=== PATIENT | female | born 1945 | race Caucasian/White ===

== ENCOUNTER 2019-03-24 15:41 | Observation (INO) | payer MEDICARE ==
[~2019-03-24] VITALS: Ht 157.5 cm; Wt 62.9 kg
--- OUTSIDE RECORDS SUMMARY | ~2019-03-24 | XMS | Clinical Summary ---
Demographics + + + | Address | [address] | | | [place] [address] | + + + | Home Phone | | + + + | Preferred Language | Unknown | + + + | Marital Status | | + + + | Scientologist Affiliation | 1013 | + + + | Race | Unknown | + + + | Ethnic Group | Unknown | + + + Author + + + | Author | [facility] | | | and [facility] | + + + | Organization | [facility] | | | and [facility] | + + + | Address | Unknown | + + + | Phone | Unavailable | + + + Support + + +---------+ + | Name | Relationship | Address | Phone | + + +---------+ + | BRIJESH RASHEED | ECON | Unknown | | + + +---------+ + Care Team Providers + +------+ + | Care Automobile Designer Name | Role | Phone | + +------+ + | Asif Dickinson MD | PP | | + +------+ + Allergies + + + + + + | Active Allergy | Reactions | Severity | Noted | Comments | | | | | Date | | + + + + + + | Meperidine | Nausea And Vomiting | Low | 05 | | | | | | 17 | | + + + + + + | Penicillins | Hives, Itching, Rash | Low | 04/28/20 | | | | | | 17 | | + + + + + + | Sulfa Antibiotics | Hives | High | 04/21/20 | | | | | | 17 | | + + + + + + Medications + + + +---------+------+------+-------+ | Medication | Sig | Dispensed | Refills | Star | End | Statu | | | | | | t | Date | s | | | | | | Date | | | + + + +---------+------+------+-------+ | atenolol | Take 50 mg by mouth | | 0 | 03 | | Activ | | (TENORMIN) 50 mg | Daily. | | | 02/14 | | e | | tablet | | | | 17 | | | + + + +---------+------+------+-------+ | Flaxseed, Linseed, | Take 1 capsule by | | 0 | | | Activ | | (FLAXSEED OIL) 1000 | mouth Daily. | | | | | e | | MG CAPS | | | | | | | + + + +---------+------+------+-------+ | omeprazole | Take 1 capsule by | | 0 | 03/1 | | Activ | | (PRILOSEC) 20 mg | mouth Daily. | | | 3/20 | | e | | capsule | | | | 17 | | | + + + +---------+------+------+-------+ | pravastatin | Take 1 tablet by | | 0 | 03/1 | | Activ | | (PRAVACHOL) 20 mg | mouth Daily. | | | 3/20 | | e | | tablet | | | | 17 | | | + + + +---------+------+------+-------+ | sertraline | Take 150 mg by mouth | | 0 | 03/0 | | Activ | | (ZOLOFT) 100 mg | Daily. | | | 20 | | e | | tablet | | | | 18 | | | + + + +---------+------+------+-------+ | dilTIAZem (CARTIA | Take 300 mg by mouth | | 0 | | | Activ | | XT) 300 mg 24 hr | Daily. | | | | | e | | capsule | | | | | | | + + + +---------+------+------+-------+ | Calcium | Take 1 tablet by | | 0 | | | Activ | | Carb-Cholecalciferol | mouth Daily. | | | | | e | | (CALCIUM 600 + D | | | | | | | | PO) | | | | | | | + + + +---------+------+------+-------+ | levothyroxine | Take 137 mcg by | | 0 | 03/2 | | Activ | | (SYNTHROID) 137 MCG | mouth Daily. | | | /20 | | e | | tablet | | | | 18 | | | + + + +---------+------+------+-------+ Active Problems Not on file Family History + + +---------+ + | Medical History | Relation | Name | Comments | + + +---------+ + | Asthma | Father | | | + + +---------+ + | COPD | Father | | | + + +---------+ + | Hypertension | Father | | | + + +---------+ + | No known problems | Maternal | Niaxine | | | | Aunt | | | + + +---------+ + | No known problems | Maternal | Radha | | | | Aunt | | | + + +---------+ + | Heart attack | Maternal | | | | | Grandfath | | | | | er | | | + + +---------+ + | Stroke | Maternal | | | | | Grandmoth | | | | | er | | | + + +---------+ + | Heart failure | Maternal | | | | | Uncle | | | + + +---------+ + | Other (see comment) | Maternal | | Sepsis | | | Uncle | | | + + +---------+ + | Heart disease | Maternal | | | | | Uncle | | | + + +---------+ + | Heart disease | Maternal | | | | | Uncle | | | + + +---------+ + | Liver disease | Maternal | | | | | Uncle | | | + + +---------+ + | Other cancer | Mother | | Intestinal | + + +---------+ + | Other (see comment) | Paternal | | Peritonitis | | | Grandfath | | | | | er | | | + + +---------+ + | No known problems | Paternal | | | | | Grandmoth | | | | | er | | | + + +---------+ + | Suicide | Paternal | | | | | Uncle | | | + + +---------+ + | Suicide | Sister | | | + + +---------+ + | No known problems | Son | | | + + +---------+ + + +---------+ + + | Relation | Name | Status | Comments | + +---------+ + + | Father | | | | | | | (Age | | | | | 92) | | + +---------+ + + | Maternal Aunt | Niaxine | Alive | | + +---------+ + + | Maternal Aunt | Radha | Alive | | + +---------+ + + | Maternal Grandfather | | | | | | | (Age | | | | | 79) | | + +---------+ + + | Maternal Grandmother | | | | | | | (Age | | | | | 66) | | + +---------+ + + | Maternal Uncle | | | | + +---------+ + + | Maternal Uncle | | | | + +---------+ + + | Maternal Uncle | | | | + +---------+ + + | Maternal Uncle | | | | + +---------+ + + | Maternal Uncle | | | | + +---------+ + + | Mother | | | | | | | (Age | | | | | 88) | | + +---------+ + + | Paternal Grandfather | | | | | | | (Age | | | | | 64) | | + +---------+ + + | Paternal Grandmother | | | | | | | (Age | | | | | 93) | | + +---------+ + + | Paternal Uncle | | | | | | | (Age | | | | | 76) | | + +---------+ + + | Sister | | | | | | | (Age | | | | | 42) | | + +---------+ + + | Son | | Alive | | + +---------+ + + Social History + +-------+ +--------+------+ [...] + +---------+ + | Alcohol Use | Drinks/We | oz/Week | Comments | | | ek | | | + + +---------+ + | Yes | 7 | 4.2 | 1 glass of Red wine in the eveing | | | Glasses | | | | | of wine | | | + + +---------+ + + + + | Sex Assigned at | Date Recorded | | | | + + + | Not on file | | + + + + + + + | Job Start Date | Occupation | Industry | + + + + | Not on file | Not on file | Not on file | + + + + + + + + | Travel History | Travel Start | Travel End | + + + + + + | No recent travel history available. | + + Last Filed Vital Signs + + + + | Vital Sign | Reading | Time Taken | + + + + | Blood Pressure | 126/70 | 02/17/2018 1134 PDT | + + + + | Pulse | 60 | 02/17/20184 PDT | + + + + | Temperature | - | - | + + + + | Respiratory Rate | - | - | + + + + | Oxygen Saturation | - | - | + + + + | Inhaled Oxygen | - | - | | Concentration | | | + + + + | Weight | 61.2 kg (134 lb 14.7 | 02/17/20181133 PDT | | | oz) | | + + + + | Height | 157.5 cm (5' 2") | 02/17/20181133 PDT | + + + + | Body Mass Index | 24.68 | 02/17/20181133 PDT | + + + + Plan of Treatment + + + + + | Health Maintenance | Due Date | Last Done | Comments | + + + + + | Hepatitis C | | | | | Screening | 6 | | | + + + + + | Vaccine: | | | | | Dtap/Tdap/Td (1 - | 5 | | | | Tdap) | | | | + + + + + | Breast Cancer | | | | | Screening (Ages | 6 | | | | 50-74) | | | | + + + + + | Colorectal Cancer | | | | | Screening | 6 | | | | (Colonoscopy) | | | | + + + + + | Vaccine: Zoster (1 | | | | | of 2) | 6 | | | + + + + + | Vaccine: | | | | | Pneumococcal 65+ | 1 | | | | Low/Medium Risk (1 | | | | | of 2 - PCV13) | | | | + + + + + | Adult Annual | | | | | Wellness Visit | 5 | | | + + + + + | Vaccine: Influenza | | | | | (Season Ended) | 9 | | | + + + + + Results Not on filefrom Last 3 Months Insurance + +--------+ +--------+-------+---------+--------+ | Payer | Benefi | Subscriber | Effect | Phone | Address | Type | | | t Plan | ID | margarita | | | | | | / | | Dates | | | | | | Group | | | | | | + +--------+ +--------+-------+---------+--------+ | [employer] | [employer] | [id number] | | | | Indemn | | | INS | 9 | 017-Pr | | | ity | | | MVA | | esent | | | | + +--------+ +--------+-------+---------+--------+ + +--------+ +--------+ + + | Guarantor Name | Accoun | Relation to | Date | Phone | Billing Address | | | t Type | Patient | of | | | | | | | | | | + +--------+ +--------+ + + | Nely Rasheed | Person | Self [birth year] | | [address] | | | al/Fam | | 1945 | [phone] | [place] [address] | | | adrienne | | | 8 (Home) | | + +--------+ +--------+ + + | Nely Rasheed | Third | Self | [birth year] | | [address] | | | Green Party | | 1945 | [phone] | [place] [address] | | | Liabil | | | 8 (Home) | | | | ity | | | | | + +--------+ +--------+ + + Advance Directives Patient has advance care planning documents on file. For more information, please contact:[facility] [place] [address]
--- OUTSIDE RECORDS SUMMARY | ~2019-03-24 | XMS | Clinical Summary ---
Demographics + + + | Address | [address] | | | [place] [address] | + + + | Home Phone | | + + + | Preferred Language | Unknown | + + + | Marital Status | | + + + | Bahai Affiliation | 1013 | + + + | Race | Unknown | + + + | Ethnic Group | Unknown | + + + Author + + + | Author | [facility] | | | and [facility] | + + + | Organization | [facility] | | | and [facility] | [...] Team Providers + +------+ + | Care Test Rider Name | Role | Phone | + [...] +--------+-------+---------+--------+ | [employer] | [employer] | [id number] | | | | Indemn | | [...] | 1945 | [phone] | [place] [address] | | | adrienne | | | 8 (Home) | | + +--------+ +--------+ + + | Nely Rasheed | Third | Self | [birth year] | | [address] | | | Libertarian | | 1945 | [phone] | [place] [address] | | | Liabil | | | 8 (Home) | | | | ity | | | | | + +--------+ +--------+ + + Advance Directives Patient has advance care planning documents on file. For more information, please contact:[facility] [place] [address]
--- OUTSIDE RECORDS SUMMARY | ~2019-03-24 | XMS | Clinical Summary ---
Demographics + + + | Address | [address] | | | [place] [address] | + + + | Home Phone | | + + + | Preferred Language | Unknown | + + + | Marital Status | | + + + | Advent Affiliation | Unknown | + + + | Race | Unknown | + + + | Ethnic Group | Unknown | + + + Author + + + | Author | [facility] | + + + | Organization | [facility] | + + + | Address | Unknown | + + + | Phone | Unavailable | + + + Support + + +---------+ + | Name | Relationship | Address | Phone | + + +---------+ + | Eusebio Rasheed | ECON | Unknown | | + + +---------+ + Care Team Providers + +------+ + | Care Job Site Supervisor Name | Role | Phone | + +------+ + | Asif Dickinson MD | PP | | + +------+ + Allergies + + + + + + | Active Allergy | Reactions | Severity | Noted | Comments | | | | | Date | | + + + + + + | Meperidine | Nausea and Vomiting | Low | 04/21/20 | | | | | | 17 | | + + + + + + | Penicillins | Hives | High | 04/28/20 | | | | | | 17 | | + + + + + + | Sulfa Antibiotics | Hives | High | 04/21/20 | | | | | | 17 | | + + + + + + Current Medications + + +-------+---------+------+------+-------+ | Prescription | Sig. | Disp. | Refills | Star | End | Statu | | | | | | t | Date | s | | | | | | Date | | | + + +-------+---------+------+------+-------+ | atenolol | | | | 03/1 | | Activ | | (TENORMIN) 50 MG | | | | 3/20 | | e | | tablet | | | | 17 | | | + + +-------+---------+------+------+-------+ | omeprazole | | | | 03/1 | | Activ | | (PRILOSEC) 20 MG | | | | 3/20 | | e | | capsule | | | | 17 | | | + + +-------+---------+------+------+-------+ | diltiazem | | | | 03/1 | | Activ | | (CARDIZEM CD) 300 MG | | | | 3/20 | | e | | 24 hr capsule | | | | 17 | | | + + +-------+---------+------+------+-------+ | levothyroxine | | | | 03/1 | | Activ | | (SYNTHROID) 125 MCG | | | | 3/20 | | e | | tablet | | | | 17 | | | + + +-------+---------+------+------+-------+ | pravastatin | | | | 03/1 | | Activ | | (PRAVACHOL) 20 MG | | | | 3/20 | | e | | tablet | | | | 17 | | | + + +-------+---------+------+------+-------+ | triazolam | | | | 03/1 | | Activ | | (HALCION) 0.25 MG | | | | 3/20 | | e | | tablet | | | | 17 | | | + + +-------+---------+------+------+-------+ | sertraline | | | | 05/1 | | Activ | | (ZOLOFT) 100 MG | | | | 1/20 | | e | | tablet | | | | 17 | | | + + +-------+---------+------+------+-------+ | Flaxseed, Linseed, | Take by mouth. | | | | | Activ | | (FLAX SEED OIL PO) | | | | | | e | + + +-------+---------+------+------+-------+ | Calcium | Take by mouth. | | | | | Activ | | Carb-Cholecalciferol | | | | | | e | | (CALCIUM 500 +D PO) | | | | | | | + + +-------+---------+------+------+-------+ Active Problems + + + | Problem | Noted Date | + + + | Left carpal tunnel syndrome | 04/21/2017 | + + + Social History + +-------+ [...] + + +---------+ + | Yes | 0 | 1.8 - | week | | | Standard | 2.4 | | | | drinks or | | | | | | | | | | equivalen | | | | | t 3-4 | | | | | Glasses | | | | | of wine | | | + + +---------+ + + + + | Sex Assigned at | Date Recorded | | | | + + + | Not on file | | + + + Last Filed Vital Signs + + + + | Vital Sign | Reading | Time Taken | + + + + | Blood Pressure | 136/68 | 08/18/2017 11:37 AM PDT | + + + + | Pulse | 58 | 08/18/2017 11:37 AM PDT | + + + + | Temperature | 36.2 C (97.2 F) | 05/04/2017 3:17 PM PDT | + + + + | Respiratory Rate | 16 | 05/04/2017 3:20 PM PDT | + + + + | Oxygen Saturation | 97% | 05/04/2017 3:20 PM PDT | + + + + | Inhaled Oxygen | - | - | | Concentration | | | + + + + | Weight | 62.1 kg (137 lb) | 08/18/2017 11:37 AM PDT | + + + + | Height | 170.2 cm (5' 7") | 08/18/2017 11:37 AM PDT | + + + + | Body Mass Index | 21.46 | 08/18/2017 11:37 AM PDT | + + + + Plan [...] Screening | 6 | | | | (Mammogram) | | | | + + + + + | Colon Cancer | | | | | Screening | 6 | | | | (Colonoscopy) | | | | + + + + + | Vaccine: Zoster (1 | | | | | of 2) | 6 | | | + + + + + | DEXA SCAN SCREENING | | | | | | 1 | | | + + + + [...] filefrom Last 3 Months Insurance + +--------+ +------+-------+ + | Payer | Benefi | Subscriber | Type | Phone | Address | | | t Plan | ID | | | | | | / | | | | | | | Group | | | | | + +--------+ +------+-------+ + | MEDICARE | MEDICA | [id number] | | | [address] | | | RE | | | | [place] [address] | | | IP-OP | | | | | + +--------+ +------+-------+ + | [employer] | MUTUAL | [id number] | | | | | | [place] | | | | | | | [place] | | | | | + +--------+ +------+-------+ + + +--------+ +--------+ + + | Guarantor Name | Accoun | Relation to | Date | Phone | Billing Address | | | t Type | Patient | of | | | | | | | | | | + +--------+ +--------+ + + | BETH RASHEED | Person | Self | [birth year] | Home: | [address] | | | al/Fam | | 1945 | [phone] | [place] [address] | | | ad[place]ne | | | [phone] | | + +--------+ +--------+ + +
--- OUTSIDE RECORDS SUMMARY | ~2019-03-24 | XMS | Clinical Summary ---
Demographics + + + | Address | [address] | | | [place] [address] | + + + | Home Phone | | + + + | Preferred Language | Unknown | + + + | Marital Status | | + + + | Mormon Affiliation | Unknown | + + + | Race | Unknown | + + + | Ethnic Group | Unknown | + + + Author + + + | Author | [facility] | + + + | Organization | [facility] | + + + | Address | Unknown | + + + | Phone | Unavailable | + + + Support + + +---------+ + | Name | Relationship | Address | Phone | + + +---------+ + | Eusebio Rasheed | ECON | Unknown | | + + +---------+ + Care Team Providers + +------+ + | Care Anesthesiologist And Critical Care Name | Role | Phone | + [...] +------+-------+ + | MEDICARE | MEDICA | [id number] | | | [address] | | | RE | | | | [place] [address] | | | IP-OP | | | | | + +--------+ +------+-------+ + | [employer] | MUTUAL | [id number] | | | | | | [place] | | | | | | | [place] | | | | | + +--------+ [...] | 1945 | [phone] | [place] [address] | | | ad[place]ne | | | [phone] | | + +--------+ +--------+ + +
--- OUTSIDE RECORDS SUMMARY | ~2019-03-24 | XMS | Clinical Summary ---
Demographics + + + | Address | [address] | | | [place] [address] | + + + | Home Phone | | + + + | Preferred Language | Unknown | + + + | Marital Status | | + + + | Latter-Day Affiliation | 1013 | + + + | Race | Unknown | + + + | Ethnic Group | Unknown | + + + Author + + + | Author | [facility] | | | and [facility] | + + + | Organization | [facility] | | | and [...] Team Providers + +------+ + | Care Security Escort Name | Role | Phone | + [...] +--------+-------+---------+--------+ | [employer] | [employer] | [id number] | | | | Indemn | | [...] | 1945 | [phone] | [place] [address] | | | adrienne | | | 8 (Home) | | + +--------+ +--------+ + + | Nely Rasheed | Third | Self | [birth year] | | [address] | | | Republican | | 1945 | [phone] | [place] [address] | | | Liabil | | | 8 (Home) | | | | ity | | | | | + +--------+ +--------+ + + Advance Directives Patient has advance care planning documents on file. For more information, please contact:[facility] [place] [address]
--- OUTSIDE RECORDS SUMMARY | ~2019-03-24 | XMS | Clinical Summary ---
Demographics + + + | Address | [address] | | | [place] [address] | + + + | Home Phone | | + + + | Preferred Language | Unknown | + + + | Marital Status | | + + + | Catholic Affiliation | Unknown | + + + | Race | Unknown | + + + | Ethnic Group | Unknown | + + + Author + + + | Author | [facility] | + + + | Organization | [facility] | + + + | Address | Unknown | + + + | Phone | Unavailable | + + + Support + + +---------+ + | Name | Relationship | Address | Phone | + + +---------+ + | Eusebio Rasheed | ECON | Unknown | | + + +---------+ + Care Team Providers + +------+ + | Care Outdoor Power Equipment Mechanic Name | Role | Phone | + [...] +------+-------+ + | MEDICARE | MEDICA | [id number] | | | [address] | | | RE | | | | [place] [address] | | | IP-OP | | | | | + +--------+ +------+-------+ + | [employer] | MUTUAL | [id number] | | | | | | [place] | | | | | | | [place] | | | | | + +--------+ [...] | 1945 | [phone] | [place] [address] | | | adrienne | | | [phone] | | + +--------+ +--------+ + +
[~2019-03-24 15:41] MED LIST: ATENOLOL50 MG PO; CITRACAL-VIT D1 EACH PO; DILTIAZEM ER300 MG PO; LEVOXYL125 MCG PO; OMEPRAZOLE20 MG PO; PRAVASTATIN SOD20 MG PO; SERTRALINE HCL100 MG PO; TRIAZOLAM0.25 MG PO; VITAMIN D2000 UNI1 PO
--- NOTE | 2019-03-24 19:35 | NUR ---
PT ARRIVED TO FLOOR VIA STRETCHER. PT ABLE TO SCOOT HERSELF OVER ONTO BED. TOLERATED WELL. PT ADMISSION COMPLETE. PT REPORTS 4/10 ABD PAIN, REQUESTS PRN. MORPHINE 2MG PRN ADMINISTERED. PT REQUESTS SLOW PUSH, STATES MEDICATION MAKES HER SLEEPY. PT DENIES FURTHER NEEDS. CALL LIGHT IN REACH. PT ORIENTED TO ROOM. CALL LIGHT IN REACH.
--- NOTE | 2019-03-24 21:18 | NUR ---
AWAKES EASILY, COOP WITH ASSESSMENT, HEA, NO RESP DISTRESS. NO FURTHER C/O PAIN.
--- NOTE | 2019-03-24 23:39 | NUR ---
RESTING, NO C/O PAIN, WARM BLANKET GIVEN. CALL LIGHT AT BEDSIDE, NPO
--- NOTE | 2019-03-25 01:47 | NUR ---
AWAKENS EASILY, NO C/O DISTRESS. CALL LIGHT AT BEDSIDE IVF INFUSING W/O PROBLEMS. NPO
--- NOTE | 2019-03-25 03:24 | NUR ---
up to br, voided, passing gas, back to bed. IVF infusing well, c/o abd cramping, will medicate. call light at bedside
--- NOTE | 2019-03-25 03:45 | NUR ---
MEDICATED W MORPHINE IV 1MG C/O 03/07 ABD CRAMPING,
--- NOTE | 2019-03-25 07:38 | NUR ---
BEDSIDE REPORT.. PT RESTING IN BED ON LEFT SIDE, RESP RATE 16 BPM EVEN, NO DISTRESS NOTED. PT APPEARS TO BE SLEEPING AT THIS TIME.
[2019-03-25] MEDS ORDERED: LEVOTHYROXINE137 MCG PO (07:44)
--- NOTE | 2019-03-25 10:15 | NUR ---
PT ALERT AND ORIENTED REPORTS PAIN 8/10, 3MG IV MORPHINE ADMINISTERED AT THIS TIME. SPOUSE AT BEDSIDE AT THIS TIME.
--- NOTE | 2019-03-25 11:15 | NUR ---
PT SITTING UP IN BED WATCHING TV, NO ISSUES AT THIS TIME. PAIN MANAGED AT TOLERABLE LEVEL AT THIS TIME.
--- NOTE | 2019-03-25 11:25 | NUR ---
Medications reconciled with pharmacy records and patient interview
--- NOTE | 2019-03-25 11:54 | NUR ---
PT RESTING IN BED SMILING AND LAUGHING WITH HER GRANDSON AT BEDSIDE. NO REQUESTS OR COMPLAINTS AT THIS TIME
--- NOTE | 2019-03-25 14:00 | NUR ---
CALLED TO NOTIFY OF PT HAVING MODERATE AMOUNT OF VI RED BLOOD OUT HER RECTUM WHILE PASSING FLATUS AMBUALTING FROM BATHROOM. VERBALIZED TO HAVE PT AT BED REST AND MONITOR FOR SYMPTOMS AND REPORT FURHTER BLOOD LOSS.
--- NOTE | 2019-03-25 15:44 | NUR ---
CALLED TO DISCUSS WHAT PT DIET SHOULD BE AT THIS POINT. ORDERED FOR CLEAR LIQUID DIET
--- NOTE | 2019-03-25 16:38 | NUR ---
HELPED PATIENT WALK INTO BATHROOM. HELPED HER DO A BED BATH. SHE WASHED HER FACE. PATIENT IS NOW RESTING.
--- NOTE | 2019-03-25 17:10 | NUR ---
PT REPORTS PAIN 5/10 AT THIS TIME. 3MG I.V. MORPHINE ADMINISTERED AT THIS TIME.
--- NOTE | 2019-03-25 19:50 | NUR ---
up in chair, watching tv, no c/o pain. coop with assessment
--- NOTE | 2019-03-25 20:58 | NUR ---
UP TO BR, VOIDED, BACK TO BED, SEMI INDEPENDENT. NO C/O ABD PAIN, NO N/V. TOLERATING CLEAR LIQUIDS WELL, CALL LLIGHT AT BEDSIDE
--- NOTE | 2019-03-25 23:50 | NUR ---
UP TO BR, VOIDED, BACK TO BED, TOLERATD WELL. C/O ABD CRAMPING, MEDICATED WTIH MORPHINE 2MG IV /10 PAIN. CALL LIGHT AT BEDSIDE. TOLERATING CLEAR LIQUIDS WELL
--- NOTE | 2019-03-26 00:52 | NUR ---
RESTING, AWAKENS EASILY, NO FURTHER C/O PAIN. CALL LIGHT AT BEDSIDE
--- NOTE | 2019-03-26 05:51 | NUR ---
CERRENTLY RESTING, EYES CLOSED, NO RESP DISTRESS , ON ROOM AIR. NO RECTAL BLEEDING THIS SHIFT. UP W 1PA. IVF INFUSING W/O PROBLEMS. TOLERATING CLEAR FLUIDS WELL. HAS BEEN MEDICATED X1 WITH MORPHINBE IV, W VERY GOOD PAIN RELIEF. CALL LIGHT AT BEDSIDE
--- NOTE | 2019-03-26 07:32 | NUR ---
RECIEVED BEDSIDE REPORT FROM JORY MUJICA. PT SLEEPING. NO REPORTS OF RECTAL BLEEDING OVERNIGHT. NO NAUSEA OR VOIMTING REPORTED. IVF RUNNING.
--- NOTE | 2019-03-26 08:05 | NUR ---
AM CARE DONE. PT REQUESTED SHOWER. WILL TALK TO NURSE.
--- NOTE | 2019-03-26 08:42 | NUR ---
PT SHOWERED. NEW GOWN AND SOCKS GIVEN. LINEN CHANGED. PT SITTING IN CHAIR.
--- NOTE | 2019-03-26 09:31 | NUR ---
PT UP TO SHOWER WITH MD JENNINGS. UP TO CHAIR FOR BREAKFAST. TOLERATED A FEW BITES OF CREAM OF RICE CEREAL, C/O PAIN IN BELLY. PT WANTED TO GO BACK TO BED.
--- NOTE | 2019-03-26 09:39 | NUR ---
PT IV RUNNING WELL. PAIN IS BETTER CONTROLLED WITH IV MORPHINE.
--- NOTE | 2019-03-26 10:30 | NUR ---
SPOKE WITH PATIENT AND IN ROOM. PATIENT PLANS TO RETURN HOME AT DISCHARGE. PATIENT HAS NO KNOWN BARRIERS TO THIS PLAN. QUESTIONS ANSWERED. DISCUSSED KNOWING DIAGNOSIS, MEDS AND SIDE EFFECTS, TEST RESULTS AND FOLLOW UP PLANS BEFORE DISCHARGE. PATIENT HAS EDUCATION PACK IN ROOM, THIS WAS GIVEN AND SHOWN. QUESTIONS ANSWERED. PT FEELS CONFIDENT SO FAR IN UNDERSTANDING AND THEY PLAN FOR TO BE PRESENT FOR DISCHARGE, ALSO. WILL FOLLOW IN CM NEEDED.
--- NOTE | 2019-03-26 14:26 | NUR ---
PT RESTING COMFORTABLY IN BED. STATES SHE CAN FEEL "THINGS RUMBLING" IN HER BELLY AND FEELS THE NEED TO PUSH BUT KNOWS THERE IS NOTHING THERE. PT TOLERATED MASHED POTATEOS AND APPLESAUCE FOR LUNCH.
--- NOTE | 2019-03-26 17:10 | NUR ---
PT RESTING COMFORTABLY IN BED. SHE HAD COMPANY THIS AFTERNOON. SHE APPEARS TO BE IN GOOD SPIRTS. SHE STATES SHE CAN FEEL "GURGLING MOVING THROUGH", BUT PAIN IS WELL CONTROLLED AT THIS TIME.
--- NOTE | 2019-03-26 18:00 | NUR ---
PT REPORTS NO BLOODY STOOLS THIS SHIFT. ADVANCED TO LOW FIBER DIET AND TOLERATING WELL. SALINE LOCKED EXCEPT FOR ABX. PT PAIN CONTROLLED WITH PRN IV MORPHINE X2 THIS SHIFT. PT REPORTS FEELING "GURGGLING" IN ABD. VOIDING WELL.
--- NOTE | 2019-03-26 20:18 | NUR ---
RECEIVED REPORT FROM DAY SHIFT RN. PATIENT IS RESTING IN BED WATCHING TV. PATIENT DENIES ANY NEEDS. CALL LIGHT IN REACH.
--- NOTE | 2019-03-26 22:30 | NUR ---
PATIENT ASSESMENT COMPLETED. PATIENT IS RESTING IN BED WATCHING TV. PATIENTS EVENING MEDICATIONS GIVEN PER ORDER. PATIENT RATES PAIN AT A 4/10 IN HER ABD. PATIENT GIVEN PRN PAIN MEDICATION PER ORDER. PATIENT HAS IV INFUSING PER ORDER. PATIENT DENIES ANY FURTHER NEEDS. AT THIS TIME. CALL LIGHT IN REACH.
--- NOTE | 2019-03-26 23:57 | NUR ---
V/S AND I&O DONE AND RECORDED. ICE WATER REFILLED. NO OTHER NEEDS AT THE TIME.
--- NOTE | 2019-03-27 01:12 | NUR ---
PATIENTS IV PUMP IS BEEPING. NEW BAG OF IV FLUIDS HUNG PER ORDER. PATIENT UP TO USE THE RESTROOM. PATIENT WAS ABLE TO VOID. PATIENT IS BACK IN BED RESTING. PATIENT DENIES ANY PAIN. PATIENT IS ALSO ABLE TO PASS GAS. NO FURTHER NEEDS NOTED. CALL LIGHT IN REACH.
--- NOTE | 2019-03-27 02:54 | NUR ---
PATIENTS PUMP WAS BEEPING. PATIENT DID NOT PLUG IN IV PUMP AFTER TRIP TO THE RESTROOM. PUMP PLUGGED IN. PATIENT RATES PAIN AT A 2/10. PATIENT DENIES THE NEED FOR ANY PAIN MEDICATION AT THIS TIME. NO NEEDS NOTED. CALL LIGHT IN REACH.
--- NOTE | 2019-03-27 04:44 | NUR ---
PATIENT IS RESTING IN BED WITH EYES CLSOED, RR 17. CALL LIGHT IN REACH.
--- NOTE | 2019-03-27 04:55 | NUR ---
PATIENT RESTED WELL THROUGHOUT THE SHIFT. PATIENT IS ON A LOW FIBER DIET, TOLERATING WELL, AND NO COMPLAINTS OF NAUSEA. NO BMS NOTED. PATIENT HAS IV INFUSING PER ORDER. PATIENT IS INDEPENT IN THE ROOM. PATIENT RECEIVED X1 PRN PAIN MEDICATION PER ORDER. PATIENT IS AAOX3 AND USES CALL LIGHT APPROPRIATELY.
--- NOTE | 2019-03-27 06:10 | NUR ---
PATIENTS VITALS TAKEN AND RECORDED. PATIENTS INTAKE AND OUTPUT REOCRDED. PATIENT DENIES ANY PAIN OR NAUSEA. NO NEEDS NOTED. CALL LIGHT IN REACH.
--- NOTE | 2019-03-27 07:05 | NUR ---
BEDSIDE HANDOFF REPORT RECEIVED FROM BRUSH CLEANER RN. PT SLEEPING, LEFT UNDISTURBED.
--- NOTE | 2019-03-27 08:24 | NUR ---
PATIENT UP TO BATHROOM AND THEN TO CHAIR, SBA. PATIENT SITTING IN CHAIR EATING BREAKFAST. CALL LIGHT IN REACH. NO FURTHER NEEDS AT THIS TIME.
--- NOTE | 2019-03-27 08:30 | NUR ---
PT SITTING IN CHAIR. PT DENIES PAIN. PT STATES SHE IS LOOKING FORWARD TO DISCHARGE TODAY. PT ON ROOM AIR, LUNG SOUNDS CLEAR. BOWEL TONES ACTIVE, DENIES NAUSEA, ABD SOFT, MIRALAX GIVEN PER ORDER. PT WIHTOUT EDEMA, CMS INTACT. IV FLUIDS INFUSING AT 100 ML/HR, IV CIPRO GIVEN. PT WITH GOOD APPETITE. DISCUSSED PLAN OF CARE FOR THE DAY. PT DENIES OTHER NEEDS AT THIS TIME.
--- NOTE | 2019-03-27 09:29 | NUR ---
PATIENT IN CHAIR WATCHING TV. FRESH WATER AND WARM BLANKET GIVEN. CALL LIGHT IN REACH. NO FURTHER NEEDS AT THIS TIME. PATIENT WANTS TO WAIT TO SEE IF BEING DISCHARGED BEFORE SHOWERING.
[2019-03-27] MEDS ORDERED: CIPROFLOXACIN500 MG PO (09:35)
[2019-03-27] MEDS ORDERED: FLAGYL500 MG PO (09:36)
[2019-03-27] MEDS ORDERED: MELATONIN5 M2 PO (10:23)
[2019-03-27] MEDS ORDERED: FLAX SEED OIL1000 MG PO (10:24)
== END 2019-03-27 10:45 | disposition home or self-care (01) ==
LOC: ED 15:41 → MS 15:43
PROVIDERS: ADMIT Internal Medicine
DX: K52.9 Noninfective gastroenteritis and colitis, unspecified (principal); E03.9 Hypothyroidism, unspecified; E78.00 Pure hypercholesterolemia, unspecified; R51 Headache; K62.5 Hemorrhage of anus and rectum; Z79.899 Other long term (current) drug therapy; Z88.5 Allergy status to narcotic agent; Z88.0 Allergy status to penicillin; Z88.2 Allergy status to sulfonamides
CPT/HCPCS: 36415; 74177; 80048; 80053; 81001; 83690; 83735; 85025; 87088; 96361; 96366; 96368; 96376; 99284-25; C9113; G0378; J0744; J2270; J2405; J7030; Q9967

== ENCOUNTER 2019-04-24 12:35 | Day surgery (SDC) | payer MEDICARE ==
[~2019-04-24] VITALS: Ht 157.5 cm; Wt 59.9 kg
--- NOTE | ~2019-04-24 | OR ---
[facility] [address], [place] [address] Draft DATE OF OPERATION: 04/24/2019 SURGEON: Viji Muro MD PREOPERATIVE DIAGNOSES: 1. Colon screening. 2. History of diverticular disease with incomplete colonoscopy, Della Martinez, 2007. POSTOPERATIVE DIAGNOSIS: Profound diverticular changes of sigmoid, otherwise normal colon. PROCEDURE PERFORMED: Total colonoscopy to cecum (prolonged, complicated, difficult). ANESTHESIA: Intravenous sedation, fentanyl 200 mcg and Versed 10 mg. INDICATION: A 73-year-old white woman is a patient of Sarah Mcelroy. She underwent colonoscopy greater than 10 years ago in [place], [place], by Dr. Jigar Wiley. Colonoscopy was incomplete due to inability to pass the scope and a barium enema was then performed showing no sign of abnormality other than diverticulosis. She is generally symptom-free, though she does have constipation from hsjp-kg-iowd. She was admitted to the hospital for "colitis" in the past several weeks by Dr. Garcia. It was unclear if this represented colitis proper or diverticulitis. She does have family history of ulcerative colitis in a maternal aunt, but no family history of colon cancer. She is admitted at this time to undergo colonoscopy to better characterize her problem and specifically to assess for colitis, neoplasm, and so on. She understands the risks of bleeding, infection, and perforation and wished to proceed. FINDINGS: The prep was excellent. Complete colonoscopy was taken to the cecum, but was not easy at all. The sigmoid was markedly tortuous with numerous diverticuli. With patient's body position change and a fair amount of luck, the scope was passed beyond the sigmoid and relatively easily passed to the cecum after that. There was no evidence of polyps, only diverticulosis, no sign of colitis either. DESCRIPTION OF PROCEDURE: The patient was brought to the endoscopy suite and placed in lateral decubitus position, given intravenous sedation to the point of slurred speech and nystagmus. Digital rectal PATIENT NAME: BETH RASHEED OPERATIVE REPORT DATE OF : 47 REPORT #: [id number] PHYSICIAN: VIJI MURO MD PCP: SARAH MCELROY REPORT IS CONFIDENTIAL AND NOT TO BE RELEASED WITHOUT AUTHORIZATION [facility] [address], [place] [address] Draft examination was normal. Olympus video colonoscope was passed in the rectum and manipulated into the sigmoid, in into about 20-30 cm. Numerous diverticuli and angulation deformity were noted. Care in patient's irrigation and time allow for passage of the scope a bit further, but at a point, it was considered unlikely to be possible to be completed. At that point, the patient was placed in the supine position and with additional effort, the scope was then passed beyond the sigmoid into the left colon. Beyond that, the scope was passed to the cecum without problem at all really. The ileocecal valve and appendiceal orifice were normal and scope was withdrawn from that point and examination undertaken, showed no sign of abnormality as regard to colitis, polyps, or cancer. The scope was withdrawn and diverticuli and angulation deformity once again noted in the sigmoid and distal left colon. The rectum was normal. Scope was removed and the patient was taken to recovery room in good condition. CONCLUDING DIAGNOSIS: Significant diverticulosis to sigmoid and left colon with angulation deformity. No evidence of polyps or cancer. PLAN: Recommend repeat colonoscopy in 10 years if clinically appropriate or sooner if symptoms should develop. MD NAHEED [place]/LAURENCE /[id number] cc: MILES Castellon Copies: SARAH MCELROY ~ PATIENT NAME: BETH RASHEED [place] OPERATIVE REPORT DATE OF : 47 REPORT #: [id number] PHYSICIAN: VIJI MURO MD PCP: SARAH MCELROY REPORT IS CONFIDENTIAL AND NOT TO BE RELEASED WITHOUT AUTHORIZATION
[~2019-04-24 12:35] MED LIST changes: +CARTIA XT300 MG PO; +CIPROFLOXACIN500 MG PO; +DIFLUCAN150 MG PO; +FLAGYL500 MG PO; +FLAX SEED OIL1000 MG PO; +LEVOTHYROXINE137 MCG PO; +MELATONIN5 M2 PO
--- NOTE | 2019-04-24 14:39 | NUR ---
04/24/19 1439 Melany Olmedo 1417 PT ARRIVED IN PACU SLEEPY WITH NO C/O'S. ABD FIRM. ENCOURAGED TO PASS FLATUS. 1430 PASSING FLATUS. AWAKENS TO VERBAL STIMULI AND FALLS BACK TO SLEEP.
== END 2019-04-24 15:10 | disposition home or self-care (01) ==
LOC: OPS 12:35 → DS 14:00 → OPS 14:00
PROVIDERS: Surgery
PROC: 0DJD8ZZ Inspection of Lower Intestinal Tract, Via Natural or Artificial Opening Endoscopic (ICD-10-PCS; principal; 2019-04-24 13:30)
DX: Z12.11 Encounter for screening for malignant neoplasm of colon (principal); K57.30 Diverticulosis of large intestine without perforation or abscess without bleeding; Q43.9 Congenital malformation of intestine, unspecified; E03.9 Hypothyroidism, unspecified; K21.9 Gastro-esophageal reflux disease without esophagitis; I10 Essential (primary) hypertension; Z83.79 Family history of other diseases of the digestive system; Z88.0 Allergy status to penicillin
CPT/HCPCS: 99153; G0500; J2250; J3010; J7120

== ENCOUNTER 2020-07-03 15:36 | Emergency (ER) | payer MEDICARE ==
[~2020-07-03] VITALS: Ht 157.5 cm; Wt 61.2 kg
--- OUTSIDE RECORDS SUMMARY | ~2020-07-03 | XMS | Encounter Summary ---
Demographics + + + | Address | [address] | | | [place] [address] | + + + | Home Phone | | + + + | Preferred Language | Unknown | + + + | Marital Status | | + + + | Episcopalian Affiliation | 1013 | + + + | Race | Unknown | + + + | Ethnic Group | Unknown | + + + Author + + + | Author | [facility] | | | and [place] | + + + | Organization | [facility] | | | and [place] | + + + | Address | Unknown | + + + | Phone | Unavailable | + + + Support + + +---------+ + | Name | Relationship | Address | Phone | + + +---------+ + | Santiago May | ECON | Unknown | | + + +---------+ + Care Team Providers + +------+ + | Care Tractor Trailer Moving Van Driver Name | Role | Phone | + +------+ + | Asif Dickinson MD | PCP | | + +------+ + Encounter Details +--------+ + + + + | Date | Type | Department | Care Team | Description | +--------+ + + + + | 02/16/ | Abstract | [facility] | Anjel Polk MD | | | 2018 | | PHYSIATRY [address] | | | | | [address] | [place] [address] | | | | | [place] | [phone] | | | | | [address] | | | | | | [phone] | | | +--------+ + + + + Social History + +-------+ +--------+------+ | Tobacco Use | Types | Packs/Day | Years | Date | | | | | Used | | + +-------+ +--------+------+ | Never Smoker | | | | | + +-------+ +--------+------+ + +---+---+---+ | Smokeless Tobacco: | | | | | Never Used | | | | + +---+---+---+ + + +---------+ + | Alcohol Use | Drinks/Week | oz/Week | Comments | + + +---------+ + | Yes | 7 Glasses of wine | 7.0 | 1 glass of Red wine | | | | | in the eveing | + + +---------+ + + + + | Sex Assigned at | Date Recorded | | | | + + + | Not on file | | + + + documented as of this encounter Plan of Treatment Not on filedocumented as of this encounter Visit Diagnoses Not on filedocumented in this encounter"
--- OUTSIDE RECORDS SUMMARY | ~2020-07-03 | XMS | Encounter Summary ---
Demographics + + + | Address | [address] | | | [place] [address] | + + + | Home Phone | | + + + | Preferred Language | Unknown | + + + | Marital Status | | + + + | Scientology Affiliation | 1013 | + + + | Race | Unknown | + + + | Ethnic Group | Unknown | + + + Author + + + | Author | [facility] | | | and [place] | + + + | Organization | [facility] | | | and [place] [...] Team Providers + +------+ + | Care Filling Layer Up Name | Role | Phone | + +------+ + | Asif Dickinson MD | PCP | | + +------+ + Reason for Visit + +--------+ + | Reason | Onset | Comments | | | Date | | + +--------+ + | Appointment | 02/09/ | Reschedule from 02/20/18 to 02/22/18 | | | 2018 | | + +--------+ + Encounter Details +--------+ + + + + | Date | Type | Department | Care Team | Description | +--------+ + + + + | 02/09/ | Telephone | [facility] | Anjel Polk MD | Appointment | | 2018 | | NEUROSURGERY [address] | (Reschedule from | | | | [address] [facility] [address] | [place] [address] | 02/20/18 to | | | | [place] | [phone] | 02/22/18) | | | | [address] | | | | | | [phone] | | | +--------+ + + + + Social History + +-------+ +--------+------+ | Tobacco Use | Types | Packs/Day | Years | Date | | | | | Used | | + +-------+ +--------+------+ | Never Assessed | | | | | + +-------+ +--------+------+ + + + | Sex Assigned at | Date Recorded | | | | + + + | Not on file | | + + + documented as of this encounter Miscellaneous Notes Telephone Encounter - Luz Quijano - 02/09/2018 11:48 AM PDTReschedule: Patient Name: Nely May Outcome: Spoke with Patient If Someone Else, Who: Cb From: 02/20/18 Cb To: 02/22/18 Cb Reason: Provider in Surgery Cb Number: 1 Communication: Letter Note: documented in this en counter Plan of Treatment Not on filedocumented as of this encounter Visit Diagnoses Not on filedocumented in this encounter"
--- OUTSIDE RECORDS SUMMARY | ~2020-07-03 | XMS | Encounter Summary ---
Demographics + + + | Address | [address] | | | [place] [address] | + + + | Home Phone | | + + + | Preferred Language | Unknown | + + + | Marital Status | | + + + | Alevism Affiliation | 1013 | + + + | Race | Unknown | + + + | Ethnic Group | Unknown | + + + Author + + + | Author | [facility] | | | and [place] | + + + | Organization | [facility] | | | and [place] | + + + | Address | Unknown | + + + | Phone | Unavailable | + + + Support + + +---------+ + | Name | Relationship | Address | Phone | + + +---------+ + | Santiago May | ECON | Unknown | | + + +---------+ + Care Team Providers + +------+ + | Care Flowers Salesperson Name | Role | Phone | + +------+ + | Asif Dickinson MD | PCP | | + +------+ + Reason for Visit + +--------+ + | Reason | Onset | Comments | | | Date | | + +--------+ + | Appointment | 02/21/ | 4 Month Follow Up | | | 2017 | | + +--------+ + Encounter Details +--------+ + + + + | Date | Type | Department | Care Team | Description | +--------+ + + + + | 02/21/ | Telephone | [facility] | Anjel Polk MD | Appointment (4 Month | | 2018 | | NEUROSURGERY [address] | [address] | Follow Up) | | | | [address] | [place] [address] | | | | | [place] | [phone] | | | | | [address] | | | | | | [phone] | | | +--------+ + + + [...] this encounter Miscellaneous Notes Telephone Encounter - Yue Palmer - 03/01/2018 11:30 AM PDTLetter created and mailed . elephone Encounter - Viky Fenton, Head Athletic Trainer/Strength Coach - 03/01/2018 11:27 AM PDTYes, please. Electronically sig lucio by Viky Fenton, Head Athletic Trainer/Strength Coach at 03/01/2018 11:27 AM PDTTelephone Encounter - Yue Ojeda - 03/01/2018 11:13 AM PDTCalled and left a voicemail for patient to call alli walker and schedule. This is the third voicemail I have left. Is it okay to send letter and close this note till she call back? Please advise. elephone Encounter - Yue Palmer - 02/24/2018 9:13 AM PDTI called Nely at . I left a message for her to call back and schedule. elephone Encounter - Yue Palmer - 02/22/20 11:39 AM PDTNely came in and saw Troy Gagnon on 02/17. Before we could schedule her a 4 m o follow up No Imaging Needed; Epic crashed. I called and left a message for Nely to call us back and schedule. documented in this encounter Plan of Treatment Not on filedocumented as of this encounter Visit Diagnoses Not on filedocumented in this encounter"
--- OUTSIDE RECORDS SUMMARY | ~2020-07-03 | XMS | Clinical Summary ---
Demographics + + + | Address | [address] | | | [place] [address] | + + + | Home Phone | | + + + | Preferred Language | Unknown | + + + | Marital Status | | + + + | Gnosticism Affiliation | 1013 | + + + | Race | Unknown | + + + | Ethnic Group | Unknown | + + + Author + + + | Author | [facility] | | | and [place] | + + + | Organization | [facility] | | | and [place] [...] Team Providers + +------+ + | Care Corpsman Name | Role | Phone | + +------+ + | Asif Dickinson MD | PCP | | + +------+ + Allergies + + + + + + | Active Allergy | Reactions | Severity | Noted | Comments | | | | | Date | | + + + + + + | Meperidine | Nausea And Vomiting | Low | 05/ | | | | | | 17 [...] MCG | mouth Daily. | | | 20 | | e | | tablet | | | | 18 | | | + + + +---------+------+------+-------+ Active Problems + + + | Problem | Noted Date | + + + | Left carpal tunnel syndrome | 04/21/2017 | + + + Family History + + +---------+ + | [...] Filed Vital Signs + + + + + | Vital Sign | Reading | Time Taken | Comments | + + + + + | Blood Pressure | 126/70 | 02/17/2018 11:34 AM | | | | | PDT | | + + + + + | Pulse | 60 | 02/17/2018 11:34 AM | | | | | PDT | | + + + + + | Temperature | 36.2 C (97.2 F) | 05/05/2017 10:20 AM | | | | | PDT | | + + + + + | Respiratory Rate | 16 | 05/05/2017 10:20 AM | | | | | PDT | | + + + + + | Oxygen Saturation | - | - | | + + + + + | Inhaled Oxygen | - | - | | | Concentration | | | | + + + + + | Weight | 61.2 kg (134 lb 14.7 | 02/17/2018 11:34 AM | | | | oz) | PDT | | + + + + + | Height | 157.5 cm (5' 2") | 02/17/2018 11:34 AM | | | | | PDT | | + + + + + | Body Mass Index | 24.68 | 02/17/2018 11:34 AM | | | | | PDT | | + + + + + Plan of Treatment + + +-------+ + | Health Maintenance | Due Date | Last | Comments | | | | Done | | + + +-------+ + | Vaccine: | | | | | Dtap/Tdap/Td (1 - | 5 | | | | Tdap) | | | | + + +-------+ + | Vaccine: Zoster (1 | | | | | of 2) | 6 | | | + + +-------+ + | Breast Cancer | | | | | Screening | 1 | | | + + +-------+ + | Vaccine: | | | | | Pneumococcal 65+ (1 | 1 | | | | of 1 - PPSV23) | | | | + + +-------+ + | Vaccine: Influenza | | | | | (#1) | 0 | | | + + +-------+ + Results Not on filefrom Last 3 [...] +--------+-------+---------+--------+ | [employer] | [employer] | [phone] | | | | Indemn | | [...] + +--------+ +--------+ + + | Nely May | Person | Self | [birth year] | [address] | | | al/Fam | | 1945 | [phone] | [place] [address] | | | adrienne | | | 8 (Home) | | + +--------+ +--------+ + + | Nely May | Third | Self | [birth year] | | [address] | | | Libertarian | | 1945 | [phone] | [place] [address] | | | Liabil | | | 8 (Home) | | | | ity | | | | | + +--------+ +--------+ + + Advance Directives + + + + + | Type | Date Recorded | Patient | Explanation | | | | Tree Specialist | | + + + + + | Power of | | | | | Network Contractor | | | | + + + + + | Advance | 02/17/2018 10:42 | | | | Directive | AM | | | + + + + +
--- OUTSIDE RECORDS SUMMARY | ~2020-07-03 | XMS | Encounter Summary ---
Demographics + + + | Address | [address] | | | [place] [address] | + + + | Home Phone | | + + + | Preferred Language | Unknown | + + + | Marital Status | | + + + | Orthodox Affiliation | 1013 | + + + | Race | Unknown | + + + | Ethnic Group | Unknown | + + + Author + + + | Author | [facility] | | | and [place] | + + + | Organization | [facility] | | | and [...] Team Providers + +------+ + | Care Burglary Investigator Name | Role | Phone | + +------+ + | Asif Dickinson MD | PCP | | + +------+ + Encounter Details +--------+ + + + + | Date | Type | Department | Care Team | Description | +--------+ + + + + | 02/17/ | [facility] | [facility] | Anjel Polk MD | Back pain, | | 2018 | Encounter | MED CTR XRAY [address] | unspecified back | | | | [place] | [place] [address] | location, | | | | [place] [address] | [phone] | unspecified back | | | | [phone] | | pain laterality, | | | | | | unspecified | | | | | | chronicity | +--------+ + + + + Social [...] + + documented as of this encounter Medications at Time of Discharge + + + +---------+ + + | Medication | Sig | Dispensed | Refills | Start | End Date | | | | | | Date | | + + + +---------+ + + | atenolol | Take 50 mg by mouth | | 0 | 02/08/20 | | | (TENORMIN) 50 mg | Daily. | | | 17 | | | tablet | | | | | | + + + +---------+ + + | Calcium | Take 1 tablet by | | 0 | | | | Carb-Cholecalciferol | mouth Daily. | | | | | | (CALCIUM 600 + D | | | | | | | PO) | | | | | | + + + +---------+ + + | dilTIAZem (CARTIA | Take 300 mg by mouth | | 0 | | | | XT) 300 mg 24 hr | Daily. | | | | | | capsule | | | | | | + + + +---------+ + + | Flaxseed, Linseed, | Take 1 capsule by | | 0 | | | | (FLAXSEED OIL) 1000 | mouth Daily. | | | | | | MG CAPS | | | | | | + + + +---------+ + + | levothyroxine | Take 137 mcg by | | 0 | 02/17/20 | | | (SYNTHROID) 137 MCG | mouth Daily. | | | 18 | | | tablet | | | | | | + + + +---------+ + + | omeprazole | Take 1 capsule by | | 0 | 02/08/20 | | | (PRILOSEC) 20 mg | mouth Daily. | | | 17 | | | capsule | | | | | | + + + +---------+ + + | pravastatin | Take 1 tablet by | | 0 | 02/08/20 | | | (PRAVACHOL) 20 mg | mouth Daily. | | | 17 | | | tablet | | | | | | + + + +---------+ + + | sertraline | Take 150 mg by mouth | | 0 | 01/27/20 | | | (ZOLOFT) 100 mg | Daily. | | | 18 | | | tablet | | | | | | + + + +---------+ + + documented as of this encounter Plan of Treatment Not on filedocumented as of this encounter Procedures + +--------+ + + + | Procedure Name | Priori | Date/Time | Associated Diagnosis | Comments | | | ty | | | | + +--------+ + + + | XR LUMBAR SPINE 4 + | Routin | 02/17/2018 | Back pain, | Results for this | | VW | e | 11:07 AM | unspecified back | procedure are in the | | | | PDT | location, | results section. | | | | | unspecified back | | | | | | pain laterality, | | | | | | unspecified | | | | | | chronicity | | + +--------+ + + + documented in this encounter Results XR Lumbar Spine 4 + Vw (02/17/2018 11:07 AM PDT) + + | Specimen | + + | | + + + + + | Narrative | Performed At | + + + | FOUR VIEWS LUMBAR SPINE 02/17/2018 11:07 AM CLINICAL HISTORY: | [facility] | | Back pain COMPARISON: MRI AND RADIOGRAPHS MAY 2017 FINDINGS: | | | Five non rib-bearing, lumbar type vertebrae are visible. An AP view | | | and lateral views in neutral, flexed and extended positions are | | | provided. Osteopenia is suggested. Vertebral height is maintained | | | without evident fracture or obvious spondylolysis. There is mild | | | mid lumbar disc space narrowing with early multilevel vertebral | | | spondylosis and lower lumbar facet hypertrophy. Mild retrolisthesis | | | is again present at L2-3 and L3-4 and persists with flexion and | | | extension. Mild retrolisthesis at L1-2 persists with extension but | | | resolves with flexion. The sacroiliac joints and imaged sacrum, bony | | | pelvis and lower ribs are unremarkable. There is moderate | | | colorectal stool retention. Soft tissues are otherwise unremarkable. | | | IMPRESSION - 1. SPONDYLOSIS AND MILD SPONDYLOLISTHESIS | | | DESCRIBED. 2. COLORECTAL STOOL RETENTION. Dictated and | | | Signed by: Jeff Mendoza MD Electronically signed: 02/17/2018 3:26 | | | PM | | + + + + + | Procedure Note | + + | Andrew, Rad Results In - 02/17/2018 3:29 PM PDT FOUR VIEWS LUMBAR SPINE 02/17/2018 11:07 | | AMCLINICAL HISTORY: Back painCOMPARISON: MRI AND RADIOGRAPHS MAY 2017FINDINGS: Five | | non rib-bearing, lumbar type vertebrae are visible. An AP viewand lateral views in | | neutral, flexed and extended positions are provided. Osteopenia is suggested. Vertebral | | height is maintained without evidentfracture or obvious spondylolysis. There is mild | | mid lumbar disc spacenarrowing with early multilevel vertebral spondylosis and lower | | lumbar facethypertrophy. Mild retrolisthesis is again present at L2-3 and L3-4 and | | persistswith flexion and extension. Mild retrolisthesis at L1-2 persists with | | extensionbut resolves with flexion. The sacroiliac joints and imaged sacrum, bony | | pelvisand lower ribs are unremarkable. There is moderate colorectal stool retention. | | Soft tissues are otherwise unremarkable.IMPRESSION -1. SPONDYLOSIS AND MILD | | SPONDYLOLISTHESIS DESCRIBED.2. COLORECTAL STOOL RETENTION.Dictated and Signed by: | | Jeff Mendoza MD Electronically signed: 02/17/2018 3:26 PM | |but resolves with flexion. The sacroiliac joints and imaged sacrum, bony pelvis | |and lower ribs are unremarkable. There is moderate colorectal stool retention. | |Soft tissues are otherwise unremarkable. | | | |IMPRESSION - | | | |1. SPONDYLOSIS AND MILD SPONDYLOLISTHESIS DESCRIBED. | | | |2. COLORECTAL STOOL RETENTION. | | | |Dictated and Signed by: Jeff Mendoza MD | | Electronically signed: 02/17/2018 3:26 PM | + + + +---------+ + + | Performing | Address | City/State/Zipcode | Phone Number | | Organization | | | | + +---------+ + + | [facility] | | | | + +---------+ + + documented in this encounter Visit Diagnoses + + | Diagnosis | + + | Back pain, unspecified back location, unspecified back pain laterality, unspecified | | chronicity | + + documented in this encounter"
--- OUTSIDE RECORDS SUMMARY | ~2020-07-03 | XMS | Encounter Summary ---
Demographics + + + | Address | [address] | | | [place] [address] | + + + | Home Phone | | + + + | Preferred Language | Unknown | + + + | Marital Status | | + + + | Sikhism Affiliation | 1013 | + + + | Race | Unknown | + + + | Ethnic Group | Unknown | + + + Author + + + | Author | [facility] | | | and [place] | + + + | Organization | [facility] | | | and [place] | [...] Team Providers + +------+ + | Care Day Care Supervisor Name | Role | Phone | + +------+ + | Asif Dickinson MD | PCP | | + +------+ + Reason for Visit Diagnostic/Screening (Routine) +--------+--------+ + + + + | Status | Reason | Specialty | Diagnoses / | Referred By | Referred To | | | | | Procedures | Contact | Contact | +--------+--------+ + + + + | Closed | | Radiology | Procedures | Provider, | | | | | | MRI | Historical, | | | | | | Cervical | [address] | | | | | | Spine wo | [address] | | | | | | Contrast | [place] | | | | | | | [address] | | +--------+--------+ + + + + Encounter Details +--------+ + + + + | Date | Type | Department | Care Team | Description | +--------+ + + + + | 01/06/ | [facility] | Provider, | | | 2018 | Exam | MED CTR EXTERNAL | MD [address] | | | | | IMAGING [address] | [address]ain Smalls | | | | | [address] [facility] | [place] [address] | | | | | [place] [address] | | | | | | [phone] | | | +--------+ + + + [...] | + +--------+ + + + | MRI CERVICAL SPINE | Routin | 08/17/2017 | | Results for this | | WO CONTRAST | e | 9:40 AM | | procedure are in the | | | | PDT | | results section. | + +--------+ + + + documented in this encounter Results MRI Cervical Spine wo Contrast (08/17/2017 9:40 AM PDT) + + | Specimen | + + | | + + + + + | Narrative | Performed At | + + + | External films for comparison only - no result from | [facility] | + + + + +---------+ + + | Performing | Address | City/State/Zipcode | Phone Number | | Organization | | | | + +---------+ + + | [facility] | | | | + +---------+ + + documented in this encounter Visit Diagnoses Not on filedocumented in this encounter"
--- OUTSIDE RECORDS SUMMARY | ~2020-07-03 | XMS | Encounter Summary ---
Demographics + + + | Address | [address] | | | [place] [address] | + + + | Home Phone | | + + + | Preferred Language | Unknown | + + + | Marital Status | | + + + | Tenriism Affiliation | 1013 | + + + | Race | Unknown | + + + | Ethnic Group | Unknown | + + + Author + + + | Author | [facility] | | | and [place] | + + + | Organization | [facility] | | | and [place] [...] Team Providers + +------+ + | Care Pastry Baker Name | Role | Phone | + +------+ + | Asif Dickinson MD | PCP | | + +------+ + Encounter Details +--------+ + + + + | Date | Type | Department | Care Team | Description | +--------+ + + + + | 01/06/ | Imaging | [facility] | Provider, | | | 2018 | Exam | MED CTR EXTERNAL | MD [address] | | | | | IMAGING [address] | [address] | | | | | [address] | [place] [address] | | | | | [place] [address] | | | | | | [phone] | | | +--------+ + + + [...] + +--------+ + + + | XR CERVICAL SPINE 6 | Routin | 06/10/2017 | | Results for this | | OR MORE VWS | e | 11:40 AM | | procedure are in the | | | | PDT | | results section. | + +--------+ + + + documented in this encounter Results XR Cervical Spine 6 or More Vws (06/10/2017 11:40 AM PDT) + + | Specimen | + + | | + + + + + | Narrative | Performed At | + + + | External films for comparison only - no result from [facility]. | [facility] | + + + + +---------+ + + | Performing | Address | City/State/Zipcode | Phone Number | | Organization | | | | + +---------+ + + | [facility] | | | | + +---------+ + + documented in this encounter Visit Diagnoses Not on filedocumented in this encounter"
--- OUTSIDE RECORDS SUMMARY | ~2020-07-03 | XMS | Encounter Summary ---
Demographics + + + | Address | [address] | | | [place] [address] | + + + | Home Phone | | + + + | Preferred Language | Unknown | + + + | Marital Status | | + + + | Amish Affiliation | 1013 | + + + | Race | Unknown | + + + | Ethnic Group | Unknown | + + + Author + + + | Author | [facility] | | | and [place] | + + + | Organization | [facility] | | | and [place] [...] Team Providers + +------+ + | Care Timber Selector Name | Role | Phone | + [...] | | [address] | [place] [address] | | | | | [place] [address] | | | | | | [phone] | | | +--------+ + + + [...] + + + | XR LUMBAR SPINE 2 OR | Routin | 06/10/2017 | | Results for this | | 3 VW | e | 11:50 AM | | procedure are in the | | | | PDT | | results section. | + +--------+ + + + documented in this encounter Results XR Lumbar Spine 2 or 3 Vw (06/10/2017 11:50 AM PDT) + + | Specimen | [...]
--- OUTSIDE RECORDS SUMMARY | ~2020-07-03 | XMS | Encounter Summary ---
Demographics + + + | Address | [address] | | | [place] [address] | + + + | Home Phone | | + + + | Preferred Language | Unknown | + + + | Marital Status | | + + + | Evangelical Affiliation | 1013 | + + + | Race | Unknown | + + + | Ethnic Group | Unknown | + + + Author + + + | Author | [facility] | | | and [place] | + + + | Organization | [facility] | | | and [place] | + [...] Team Providers + +------+ + | Care Spiral Runner Name | Role | Phone | + [...] | | | | | | MRI Lumbar | Historical, | | | | | | Spine wo | [address] | | | | | | Contrast | [address] | | | | | | | [place] | | | | | | | [address] | | +--------+--------+ + + + + Encounter Details +--------+ + + + + | Date | Type | Department | Care Team | Description | +--------+ + + + + | 01/06/ | [facility] | [facility] | Provider, | | | 2018 | Exam | MED CTR EXTERNAL | MD [address] | | | | | IMAGING [address] | [address] Smalls | | | | | [address] [facility] | [place] [address] | | | | | [place] [address] | | | | | | [phone] | | | +--------+ + + + [...] + +--------+ + + + | MRI LUMBAR SPINE WO | Routin | 06/14/2017 | | Results for this | | CONTRAST | e | 2:40 PM | | procedure are in the | | | | PDT | | results section. | + +--------+ + + + documented in this encounter Results MRI Lumbar Spine wo Contrast (06/14/2017 2:40 PM PDT) + + | Specimen | + [...]
--- OUTSIDE RECORDS SUMMARY | ~2020-07-03 | XMS | Encounter Summary ---
Demographics + + + | Address | [address] | | | [place] [address] | + + + | Home Phone | | + + + | Preferred Language | Unknown | + + + | Marital Status | | + + + | Voodoo Affiliation | 1013 | + + + | Race | Unknown | + + + | Ethnic Group | Unknown | + + + Author + + + | Author | [facility] | | | and [place] | + + + | Organization | [facility] | | | and [place] [...] Team Providers + +------+ + | Care Digital Hardware Design Engineer Name | Role | Phone | + +------+ + | Asif Dickinson MD | PCP | | + +------+ + Encounter Details +--------+ + + + + | Date | Type | Department | Care Team | Description | +--------+ + + + + | 01/06/ | Imaging | [facility] | Provider, | | | 2018 | Exam | MED CTR EXTERNAL | MD [address] | | | | | IMAGING [address] | [address] | | | | | [address] | [place] [address] | | | | | [place] [address] | | | | | | [phone] | | | +--------+ + + + [...] + +--------+ + + + | XR THORACIC SPINE 3 | Routin | 06/10/2017 | | Results for this | | VW | e | 11:45 AM | | procedure are in the | | | | PDT | | results section. | + +--------+ + + + documented in this encounter Results XR Thoracic Spine 3 Vw (06/10/2017 11:45 AM PDT) + + | Specimen | + + | | + + + + + | Narrative | Performed At | + + + | External films for comparison only - no result from [facility]. | [facility] | + + + + +---------+ + + | Performing | Address | City/State/Zipcode | Phone Number | | Organization | | | | + +---------+ + + | [facility] | | | | + +---------+ + + documented in this encounter Visit Diagnoses Not on filedocumented in this encounter"
--- OUTSIDE RECORDS SUMMARY | ~2020-07-03 | XMS | Encounter Summary ---
Demographics + + + | Address | [address] | | | [place] [address] | + + + | Home Phone | | + + + | Preferred Language | Unknown | + + + | Marital Status | | + + + | Christian Affiliation | 1013 | + + + | Race | Unknown | + + + | Ethnic Group | Unknown | + + + Author + + + | Author | [facility] | | | and [place] | + + + | Organization | [facility] | | | and [place] | [...] Team Providers + +------+ + | Care Pilot Can Router Name | Role | Phone | + +------+ + PCP | Unavailable | + +------+ + Encounter Details +--------+ + + + + | Date | Type | Department | Care Team | Description | +--------+ + + + + | 07/18/ | Hospital | [facility] | Huan Brian MD | | | 1993 | Encounter | MED CTR GENERIC OP | [address] | | | | | CONV DEPT [address] | [address] [place] | | | | | [place], | [id number] | | | | | [place] [address] | | | | | | [phone] | | | +--------+ + + + [...]
--- OUTSIDE RECORDS SUMMARY | ~2020-07-03 | XMS | Encounter Summary ---
Demographics + + + | Address | [address] | | | [place] [address] | + + + | Home Phone | | + + + | Preferred Language | Unknown | + + + | Marital Status | | + + + | Bahai Affiliation | 1013 | + + + | Race | Unknown | + + + | Ethnic Group | Unknown | + + + Author + + + | Author | [facility] | | | and [place] | + + + | Organization | [facility] | | | and [place] [...] Team Providers + +------+ + | Care Bandmill Operator Name | Role | Phone | + +------+ + | Asif Dickinson MD | PCP | | + +------+ + Encounter Details +--------+ + + + + | Date | Type | Department | Care Team | Description | +--------+ + + + + | 01/19/ | Orders Only | [facility] | Anjel Polk MD | Back pain, | | 2018 | | NEUROSURGERY [address] | [address] | unspecified back | | | | [address] | [place] [address] | location, | | | | [place], [place] | [phone] | unspecified back | | | | [address] | | pain laterality, | | | | [phone] | | unspecified | | | | | | chronicity (Primary | | | | | | Dx) | +--------+ + + + + Social [...] Not on filedocumented as of this encounter Results XR Lumbar Spine 4 [...] | Procedure Note | + + | Miguel Angel Morales Results In - 02/17/2018 3:29 PM PDT [...] back pain laterality, unspecified | | chronicity - Primary | + + documented in this encounter"
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
--- OUTSIDE RECORDS SUMMARY | ~2020-07-03 | XMS | Encounter Summary ---
Demographics + + + | Address | [address] | | | [place] [address] | + + + | Home Phone | | + + + | Preferred Language | Unknown | + + + | Marital Status | | + + + | Holiness Affiliation | 1013 | + + + | Race | Unknown | + + + | Ethnic Group | Unknown | + + + Author + + + | Author | [facility] | | | and [place] | + + + | Organization | [facility] | | | and [place] | [...] Team Providers + +------+ + | Care Padding Machine Operator Name | Role | Phone | + +------+ + | Asif Dickinson MD | PCP | | + +------+ + Encounter Details +--------+ + + + + | Date | Type | Department | Care Team | Description | +--------+ + + + + | 02/16/ | Abstract | [facility] [place] | Anjel Polk MD | | | 2018 | | NEUROSURGERY [address] | | | | | [address] | [place] [address] | | | | | ROMMEL Garces | [phone] | | | | | [address] | | | | | | [phone] | | | +--------+ + + + [...]
[2020-07-03] MEDS ORDERED: ZOFRAN4 MG PO (18:26)
[2020-07-03] MEDS ORDERED: DICYCLOMINE HCL10 MG PO (18:26)
--- NOTE | 2020-07-03 21:18 | EKG ---
[facility] [address] [place], [place] [address] Signed Normal sinus rhythm Normal ECG No previous ECGs available Confirmed by PARVEEN MELO MD ([id number]) on 07/03/2020 9:18:45 PM Electronically Signed By: PARVEEN MELO MD 07/03/20 2118 PATIENT NAME: BETH RASHEED [place] Electrocardiogram DATE OF : 47 PHYSICIAN: PARVEEN MELO MD REPORT #: [id number] REPORT IS CONFIDENTIAL AND NOT TO BE RELEASED WITHOUT AUTHORIZATION
== END 2020-07-03 18:46 | disposition home or self-care (01) ==
LOC: ED 15:36
DX: K52.9 Noninfective gastroenteritis and colitis, unspecified (principal); F17.200 Nicotine dependence, unspecified, uncomplicated; Z88.0 Allergy status to penicillin; Z88.2 Allergy status to sulfonamides; Z88.8 Allergy status to other drugs, medicaments and biological substances; Z79.899 Other long term (current) drug therapy
CPT/HCPCS: 80053; 81001; 83690; 83735; 85025; 93005; 93010; 96361; 96374; 96375; 99284-25; J2270; J2405; J7030

== ENCOUNTER 2022-03-20 18:45 | Inpatient (IN) | payer MEDICARE ==
[~2022-03-20] VITALS: Ht 157.5 cm; Wt 61.2 kg
[~2022-03-20 18:45] MED LIST changes: +DICYCLOMINE HCL10 MG PO; +ZOFRAN4 MG PO
--- NOTE | 2022-03-20 23:55 | NUR ---
Patient resting quietly. Alert and oriented x4. Gave lozenge for sore throat and tylenol. STates that she is tired and wishes to sleep. Will continue to monitor.
--- NOTE | 2022-03-21 01:33 | NUR ---
Patient sleeping. Dose of cough syrup aleviated cough, she is much more comfortable. Bed changed after she urinated while coughing earlier. Will continue to monitor.
--- NOTE | 2022-03-21 03:41 | NUR ---
Resting quietly in bed. Watching TV. Continues to have sporadic cough. Gave herbal tea with honey for comfort. Will continue to monitor.
--- NOTE | 2022-03-21 05:24 | NUR ---
Gave patient prn cough medication with scheduled teselon pearls. Patient has been coughing to the point that it is difficult to sleep. Will continue to monitor.
--- NOTE | 2022-03-21 06:40 | NUR ---
Patient stated good relief from her cough with the combination of Teselon Pearls and Codeine syrup. I encouraged her to splint with a pillow and deep breathe and cough while the pain medication was working. Will continue to monitor.
[2022-03-21] MEDS ORDERED: AZITHROMYCIN250 MG PO (08:24)
[2022-03-21] MEDS ORDERED: GUAIFENESIN-CO473 ML PO (08:25)
[2022-03-21] MEDS ORDERED: VENTOLIN HFA18 GM INH (08:26)
[2022-03-21] MEDS ORDERED: BUPROPION XL150 MG PO (08:28)
[2022-03-21] MEDS ORDERED: DILTIAZEM 24HR300 M1 PO (08:28)
--- NOTE | 2022-03-21 08:45 | NUR ---
TYLENOL 500 MG PO GIVEN FOR OVERALL COMFORT. SITTING UP IN BED FOR BREAKFAST.
--- NOTE | 2022-03-21 09:45 | NUR ---
OOB AMBULATED TO BR. IS STABLE ON FEET. TOLERATED AMBULATION WELL. VOIDED AND HAD SMALL BM, BACK TO BED W/O INCIDENT. REMAINS OFF O2.
--- NOTE | 2022-03-21 10:43 | NUR ---
RESTING WITH HOB ELEVATED, CONTINUES TO HAVE PRODUCTIVE COUGH. MORE CALM NOW.
--- NOTE | 2022-03-21 11:05 | NUR ---
DR. CARRILLO HERE TO SEE PATIENT, ORDERS RECIEVED.
--- NOTE | 2022-03-21 16:02 | NUR ---
IV INADVERTLY DISLODGED. ASSESSMENT DONE. LUNGS WITH MUCH BETTER AIR EXCHANGE AND LESS COARSE. LESS OF A COUGH THIS AFTERNOON. PATIENT IS VERY TALKATIVE. HAS BEEN OFF O2 ALL DAY.
--- NOTE | 2022-03-21 18:00 | NUR ---
TOOK DINNER WELL. NEB TREATMENT GIVEN. UP TO BR, UPON RETURN TO BED, 22 GA IV STARTED TO R WRIST. PATIENT STATES SHE FEELING MUCH BETTER.
--- NOTE | 2022-03-21 19:06 | NUR ---
REPORT TO NEXT SHIFT, PATIENT IS SITTNG UP IN BED WATCHING T.
--- NOTE | 2022-03-21 20:30 | NUR ---
REPORT GIVEN TO CRIS CORLEY. PATIENT ON ROOM AIR, AAO4. AWARE OF TRANSFER TO MS. EH CORLEY TO MOVE PATIENT OVER. ON TELE WITH PULSE OX.
--- NOTE | 2022-03-21 21:20 | NUR ---
PATIENT ARRIVED TO THE FLOOR. PATIENT ASSESMENT COMPLETED. VITALS TAKEN AND RECORDED. PATIENTS SCHEDULED MEDICATIONS GIVEN PER ORDER. IV INFUSING PER ORDER. PATIENT IS ON RA AND DENIES ANY SOB. PATIENT IS ON TELE #9 W/CPOX ON TELE. PATIENT DENIES ANY NEEDS. CALL LIGHT IN REACH.
--- NOTE | 2022-03-21 22:00 | NUR ---
PATIENTS IV COMPLETED INFUSING. PATIENT SL PER ORDER. PATIENT DENIES ANY FURTHER NEEDS. CALL LIGHT IN REACH.
--- NOTE | 2022-03-21 22:26 | NUR ---
PATIENT REPORTS IRRITATION IN HER THROAT. LOZENGE PER ORDER. ICE CHIPS PROVIDED PER REQUEST. NO FURTHER NEEDS NOTED. CALL LIGHT IN REACH.
--- NOTE | 2022-03-22 01:18 | NUR ---
PATIENT IS RESTING IN BED WITH EYES CLSOED, RR 18. CALL LIGHT IN REACH.
--- NOTE | 2022-03-22 03:16 | NUR ---
PATIENT IS RESTING IN BED WITH EYES CLOSED, RR 17. CALL LIGHT IN REACH.
--- NOTE | 2022-03-22 04:41 | NUR ---
PATIENT IS RESTING IN BED WITH EYES CLOSED, RR 18. CALL LIGHT IN REACH.
--- NOTE | 2022-03-22 05:52 | NUR ---
PATIENTS VITALS TAKEN AND RECORDED. INTAKE AND OUTPUT RECORDED. IV FLUSHED AND SL PER ORDER. PATIENT DENIES ANY PAIN OR SOB. PATIENT IS ON RA. PATIENTS SCHEDULED MEDCIATIONS GIVEN PER ORDER. PATIENT IS ON TELE #9 HR 89, OXYGEN SAT 98%. PATIENT DENIES ANY NEEDS. CALL LIGHT IN REACH.
--- NOTE | 2022-03-22 10:21 | NUR ---
PT UP AMBULATING IN ROOM WITH NURSING STUD[facility]ON [facility]
--- NOTE | 2022-03-22 11:14 | NUR ---
PATIENT UP TO SHOWER AND BACK TO BED, IND. PATIENT INDEPENDENT IN SHOWER, ALL SUPPLIES PROVIDED. LINENS CHANGED. PATIENT BACK TO BED AT THIS TIME. CALL LIGHT IN REACH. FRESH WATER GIVEN. NO FURTHER NEEDS AT THIS TIME.
--- NOTE | 2022-03-22 12:58 | NUR ---
NEBULIZER TREATMENT STARTED, RT IS UNABLE. ASSURED PATIENT THAT HER CONCERNS ABOUT THE HOSPITAL MENU HAVE BEEN PASSED ON.
--- NOTE | 2022-03-22 13:20 | NUR ---
PT SITTING UP IN BED FINISHING NEB TREATMENT, SHE REPORTS SHE HAS NO NEEDS, SHE IS PLEASED SHE HAD A SHOWER. SHE IS LOOKING FORWARD TO TALKING TO , SHE REPORTS SHE IS VERY PLEASED WITH THE NURSING CARE, SHE IS VERY DISAPPOINTED WITH THE QUALITY OF FOOD PROVIDED BY THE HOSPITAL
--- NOTE | 2022-03-22 13:30 | NUR ---
MED REC COMPLETE
[2022-03-22] MEDS ORDERED: BENZONATATE100 MG PO (13:54)
[2022-03-22] MEDS ORDERED: DEXAMETHASONE6 MG PO (13:55)
--- NOTE | 2022-03-22 14:30 | NUR ---
DUE TO PRECUTIONS, CONTACTED PT VIA PHONE. PT PLEASANT, ON RM O2 AND FEELING MUCH BETTER. SAID SHE WAS VERY PLEASED WITH CARE, BUT VERY UNHAPPY WITH SQL DATABASE ADMINISTRATOR. SHE SAID SHE WILL LET FLEET MANAGER KNOW. GAVE BLESSING AND WILL FOLLOW
--- NOTE | 2022-03-22 15:12 | NUR ---
DISCHARGE PACKET AND EDUCATION PROVIDED TO PT, ALSO DISCUSSED SIGNS AND SYMPTOMS TO SEEK MEDICAL ATTENTION RIGHT AWAY, ALSO FOLLOW UP APPOINTMENT MADE, V/S STABLE. PT DRESSED FOR DISCHARGE WILL D/C OUT THE BACK SIDE OF UNIT DUE TO COVID P[OSITIVE
== END 2022-03-22 15:15 | disposition home or self-care (01) | DRG 177 ==
LOC: ED 18:45 → MS 21:27 → CCU 21:27 → MS 03-21 20:35
PROVIDERS: ADMIT Internal Medicine; ATTEND Internal Medicine
PROC: 8E0ZXY6 Isolation (ICD-10-PCS; principal; 2022-03-20)
PROC: XW033E5 Introduction of Remdesivir Anti-infective into Peripheral Vein, Percutaneous Approach, New Technology Group 5 (ICD-10-PCS; 2022-03-20)
PROC: XW0 New Technology, Anatomical Regions, Introduction (ICD-10-PCS; 2022-03-20)
PROC: 3E0333Z Introduction of Anti-inflammatory into Peripheral Vein, Percutaneous Approach (ICD-10-PCS; 2022-03-20)
DX: U07.1 COVID-19 (principal); J12.82 Pneumonia due to coronavirus disease 2019; J96.01 Acute respiratory failure with hypoxia; I10 Essential (primary) hypertension; K21.9 Gastro-esophageal reflux disease without esophagitis; E03.9 Hypothyroidism, unspecified; F32.9 Major depressive disorder, single episode, unspecified; Z88.2 Allergy status to sulfonamides; Z88.0 Allergy status to penicillin; Z88.8 Allergy status to other drugs, medicaments and biological substances; Z90.710 Acquired absence of both cervix and uterus; Z98.890 Other specified postprocedural states; Z90.721 Acquired absence of ovaries, unilateral; Z79.899 Other long term (current) drug therapy; E78.5 Hyperlipidemia, unspecified; F32.A Depression, unspecified
CPT/HCPCS: 36415; 71045; 80053; 83735; 83880; 85025; 86140; 94640; 94667; 94668; 94760; 96374; 99284-25; A9270; J0248; J1100; J1650; J7050; J8540

== ENCOUNTER 2024-07-22 17:21 | Emergency (ER) | payer MEDICARE, OTHER ==
[~2024-07-22] VITALS: Ht 157.5 cm; Wt 61.5 kg
[~2024-07-22 17:21] MED LIST changes: +AZITHROMYCIN250 MG PO; +BENZONATATE100 MG PO; +BUPROPION XL150 MG PO; +DEXAMETHASONE6 MG PO; +DILTIAZEM 24HR300 M1 PO; +GUAIFENESIN-CO473 ML PO; +VENTOLIN HFA18 GM INH
[2024-07-22] MEDS ORDERED: ondansetron HCL 4 MG/2 ML VIAL IV ONE ×2 (17:45→18:15)
[2024-07-22] MEDS ORDERED: AZITHROMYCIN500 MG PO (18:03)
[2024-07-22] MEDS ORDERED: SYNTHROID125 MCG PO (18:04)
[2024-07-22] MEDS ORDERED: HYDROmorphone HCL 1 MG/ML SYR IV ONE (18:15)
[2024-07-22] MEDS ORDERED: SODIUM CHLORIDE 0.9% 1,000 ML IV PRN (18:15)
[2024-07-22 18:21] LABS: ALBUMIN/GLOBULIN RATIO 1.25 (1.1-2.4); ANION GAP 14.7 (7-21); BILIRUBIN, TOTAL 0.4 ng/dL (0.2-1.0); BUN/CREATININE RATIO 21.73 (6.0-28.6); CREATININE, SERUM 0.69 mg/dL (0.55-1.02); POTASSIUM 3.7 mmol/L (3.5-5.1); PROTEIN, TOTAL 7.2 g/dL (6.4-8.2)
[2024-07-22 19:11] LABS: BASOPHILS 0.3 % (0-2); HEMATOCRIT 36.5 % (35.0-50.0); HEMOGLOBIN 12.3 g/dL (12.0-18.0); PLATELET COUNT 162 K/uL (140-440)
[2024-07-22 19:14] LABS: LYMPHOCYTES 9.1 % (24-44); MCH 29.2 (27-36); MCHC 33.8 g/dl (30-36); MCV 86.6 fl (81-99); NEUTROPHILS 77.6 % (39-80); RBC 4.22 M/ul (4.3-5.7); RDW 13.4 (10.5-15.0)
[2024-07-22 19:48] LABS: BILIRUBIN, URINE NEGATIVE (negative); BLOOD/HGB, URINE TRACE-L (Negative); KETONE, URINE NEGATIVE (Negative); LEUK ESTERASE, URINE NEGATIVE (negative); NITRITE, URINE NEGATIVE (negative)
[2024-07-22 19:57] LABS: BACTERIA, URINE NONE SEEN /hpf (negative); CASTS, URINE NONE SEEN \\lpf; COLLECTION TYPE, URINE CLEAN CATCH; CRYSTALS, URINE NONE SEEN (0-1+); EPITHELIAL CELLS, URINE SQUAMOUS 1+ /lpf (0-1+); REFLEX CULTURE, URINE No (No)
[2024-07-22] MEDS ORDERED: LEVOFLOXACIN750 MG PO (20:50)
[2024-07-22 21:07] VITALS: BP 134/62
[2024-07-24 16:46] LABS: C. DIFF TOXIN B GENE TCDB,PCR Not Detected (())
== END 2024-07-22 21:07 | disposition home or self-care (01) ==
LOC: ED 17:21
PROVIDERS: Emergency Medicine
DX: R10.9 Unspecified abdominal pain (principal); J18.9 Pneumonia, unspecified organism; F17.200 Nicotine dependence, unspecified, uncomplicated; Z88.0 Allergy status to penicillin; Z88.2 Allergy status to sulfonamides; Z88.5 Allergy status to narcotic agent; Z91.02 Food additives allergy status; Z79.899 Other long term (current) drug therapy; Z79.890 Hormone replacement therapy
CPT/HCPCS: 36415; 74176; 80053; 81001; 83690; 83735; 85025; 87493; 96361; 96374; 96375; 99284-25; J1170; J2405; J7030